=== PATIENT | male | born 1935 | race Caucasian/White ===

== ENCOUNTER 2022-09-29 07:14 | Day surgery (SDC) | payer OTHER, BC ==
--- NOTE | 2022-09-26 09:50 | RAD REPORT ---
EXAM DESCRIPTION: RAD - Chest Pa And Lat (2 Views) - 09/26/2022 9:15 am CLINICAL HISTORY: Pre op pending neck mass removal, hypertension COMPARISON: CHEST PA AND LAT 2 VIEW dated 11/12/2009; CHEST PA AND LAT 2 VIEW dated 07/17/2008; CHEST PA AND LAT 2 VIEW dated 06/30/2008; CHEST PA AND LAT 2 VIEW dated 11/16/2003 FINDINGS: Lines: None. Lungs: No evidence of edema or pneumonia. Pleural: No significant pleural effusions or pneumothorax. Cardiac: The heart size is within normal limits. Mediastinum: Within normal limits. Bones: No acute fractures. Other: None IMPRESSION: No acute cardiopulmonary disease.
--- NOTE | 2022-09-26 13:22 | EKG ---
Test Date: 2022-09-26 Test Time: 09:03:13 Power System Dispatcher: DIANA MEASUREMENT RESULTS: Intervals: Rate: 38 [place]: QRSD: 90 QT: 458 QTc: 364 [place]: P: [place]: QRS: 15 T: 60 INTERPRETIVE STATEMENTS: Sinus bradycardia with 2nd degree AV block (Mobitz I) Abnormal ECG Compared to ECG 09/15/2013 14:26:05 Sinus rhythm no longer present First degree AV block no longer present Electronically Signed On 09-26-22 13:22:24 CDT by Jimmie Cuevas
[2022-09-29] MEDS ORDERED: Ringers Lactate 1,000 ML IV ONE (07:35)
[2022-09-29] MEDS: CEFAZOLIN SODIUM 1 GM/VIAL ONE ×2 (08:30→08:36)
[2022-09-29] MEDS ORDERED: LIDOCAINE HCL/EPINEPHRINE 20 ML MDV ONE (08:32)
[2022-09-29] MEDS ORDERED: SUCCINYLCHOLINE 20 MG/ML (10 ML) IV ONE (08:39)
[2022-09-29] MEDS ORDERED: FENTANYL CITR 100 MCG/2 ML ONE (08:43)
[2022-09-29] MEDS ORDERED: propofoL 200 MG/20 ML VIAL IV ONE (08:43)
[2022-09-29] MEDS ORDERED: LIDOCAINE 2% MPF 5 ML VIAL ONE (08:47)
[2022-09-29] MEDS ORDERED: GLYCOPYRROLATE 0.2 MG/ML SYR ONE (08:57)
[2022-09-29] MEDS ORDERED: EPHEDRINE SULF 50 MG/ML VIAL ONE (08:58)
[2022-09-29] MEDS ORDERED: CEFAZOLIN SODIUM 1 GM/VIAL ONE (09:04)
--- NOTE | 2022-09-29 09:39 | P.OP ---
Date of Service: 09/29/22 Preop diagnosis: Right posterior neck mass, rule out skin cancer Postop diagnosis: Same, basal cell carcinoma Procedure performed: Wide excision right posterior neck mass with layered closure, 4 x 2 cm Surgeon: Rafy Curtis MD Diamond Wheel Edger: BETHANY Sams Estimated blood loss: Minimal Specimen: Right posterior neck mass Findings: Basal cell carcinoma, margins free Anesthesia: General Complications: None Drains: None Fluids and blood products: Nonapplicable Disposition: Recovery room Operative note: Patient brought to the OR and placed in supine position. General anesthesia begun. Patient placed in the left lateral position. Patient prepped and draped in the usual sterile fashion. Marcaine 0.5% infiltrated locally. Then, 15 blade used to make a 4 x 2 cm incision around this 1.5 cm raised mass with ulceration. Subcutaneous tissue divided and entire mass excised. The mass labeled appropriately and sent to pathology for frozen section. Frozen section revealed basal cell carcinoma with margins free. Wound irrigated and bleeding controlled cautery. Flaps created. 2-0 chromic used to approximate subcutaneous tissue. 5-0 nylon used to close skin. Sterile dressing applied and patient awakened. Patient taken to recovery room in good general condition. CC: Dr. Green's office
[2022-09-29] MEDS ORDERED: HYDROCODONE/APAP 7.5/325 MG TAB PO PRN (09:44)
[2022-09-29 13:01] VITALS: BP 147/72; TEMP 97; O2SAT 98
--- NOTE | 2022-09-29 18:50 | EKG ---
Test Date: 2022-09-29 Test Time: 08:02:30 Rn Clinical: ROBBY MEASUREMENT RESULTS: Intervals: Rate: 58 [place]: 306 QRSD: 88 QT: 422 QTc: 414 [place]: P: 26 [place]: 306 QRS: -2 T: 58 INTERPRETIVE STATEMENTS: Sinus bradycardia with 1st degree AV block Otherwise normal ECG Compared to ECG 09/26/2022 09:03:13 First degree AV block now present Electronically Signed On 09-29-22 18:48:04 CDT by Jimmie Cuevas
== END 2022-09-29 11:20 | disposition home or self-care (01) ==
LOC: OR 07:14
PROVIDERS: ATTEND Surgery
PROC: 0JB40ZZ Excision of Right Neck Subcutaneous Tissue and Fascia, Open Approach (ICD-10-PCS; principal; 2022-09-29 08:30)
DX: C44.41 Basal cell carcinoma of skin of scalp and neck (principal)
CPT/HCPCS: 93005 ×2; 88331; 88332; 88305; 71046; 11624; J2704; J2001; J3010; J7120; J0690 ×2